=== PATIENT | female | born 1965 | race African-American/Black ===

== ENCOUNTER 2017-10-22 07:14 | Emergency (ER) | payer OTHER ==
[2017-10-22 08:15] VITALS: BP 107/62; PULSE 75; TEMP 97.5; BMI 24.3
--- NOTE | 2017-10-22 09:24 | PDOC ---
History of Present Illness - General Chief Complaint: Pain, Acute Stated Complaint: ABD PAIN Time Seen by Provider: 10/22/17 07:54 History Source: Patient - History of Present Illness Timing/Duration: other Associated Symptoms: reports: headaches. denies: chest pain, cough, fever/ chills, nausea/vomiting, shortness of breath Past History - Past Medical History Allergies/Adverse Reactions: Allergies Allergy/AdvReac Type Severity Reaction Status Date / Time No Known Drug Allergies Allergy Verified 08/24/14 16:55 Home Medications: Ambulatory Orders Calcium Carbonate/Vitamin D3 [Caltrate 600 + D Tablet] 1 each PO BID 10/07/13 FA/Mv,Ca,Iron,Min/Lycopene/Lut [Centrum Tablet] 1 each PO DAILY 10/07/13 Naproxen [Naprosyn -] 500 mg PO BID #14 tablet 08/24/14 Amoxicillin/Potassium Clav [Augmentin 875-125 Tablet] 1 each PO BID #14 tablet 10/22/17 Anemia: No Asthma: No Cancer: No Cardiac Disorders: No CVA: No COPD: No CHF: No Dementia: No Diabetes: No GI Disorders: No Disorders: No HTN: No Hypercholesterolemia: No Liver Disease: No Seizures: No Thyroid Disease: No - Surgical History Abdominal Surgery: No Appendectomy: No Cardiac Surgery: No Cholecystectomy: No Lung Surgery: No Neurologic Surgery: No Orthopedic Surgery: Yes (R FOOT CYSTECTOMY) - Suicide/Smoking/Psychosocial Hx Smoking History: Former smoker Have you smoked in the past 12 months: No If you are a former smoker, when did you quit?: 1985 Information on smoking cessation initiated: No Hx Alcohol Use: No Drug/Substance Use Hx: No Substance Use Type: None Hx Substance Use Treatment: No Review of Systems - Review of Systems Constitutional: No: Chills, Fever HEENTM: Yes: Nose Congestion Respiratory: No: Cough, Shortness of Breath Cardiac (ROS): No: Chest Pain ABD/GI: No: Constipated, Diarrhea, Nausea, Rectal Bleeding, Vomiting *Physical Exam - Vital Signs Last Vital Signs Temp Pulse Resp BP Pulse Ox 97.5 F L 75 20 107/62 100 10/22/17 08:12 10/22/17 08:12 10/22/17 08:12 10/22/17 08:12 10/22/17 08:12 - Physical Exam General Appearance: Yes: Appropriately Dressed. No: Apparent Distress HEENT: positive: Normal ENT Inspection, Normal Voice, Sinus Tenderness (mild to maxillary sinus b/l). negative: Scleral Icterus (R), Scleral Icterus (L) Neck: positive: Supple. negative: Lymphadenopathy (R), Lymphadenopathy (L) Respiratory/Chest: positive: Lungs Clear, Normal Breath Sounds. negative: Respiratory Distress Cardiovascular: positive: Regular Rate, S1, S2 Gastrointestinal/Abdominal: positive: Soft. negative: Tender, Pulsatile Mass Extremity: positive: Normal Inspection Integumentary: positive: Dry, Warm Neurologic: positive: Fully Oriented, Alert, Normal Mood/Affect ED Treatment Course - LABORATORY CBC & Chemistry Diagram: 10/22/17 09:09 10/22/17 09:09 - RADIOLOGY Radiology Studies Ordered: Category Date Time Status CHEST PA & LAT [RAD] Stat Radiology 10/22/17 08:52 Ordered Medical Decision Making - Medical Decision Making 10/22/17 09:17 51-year-old female, denies any significant past medical history here with upper abdominal pain. Patient states for the past 3 days has had sudden onset severe cramping pain to upper abdomen intermittently that lasts seconds to minutes and resolve spontaneously. Sxs occurs whether at rest or on exertion. No exacerbating or alleviating factors. No CP, SOB, diaphoresis, n/v, palpitations , edema. Denies change in BM, dysuria, f/c. No history of similar pain. No cardiac history. No recent cardiac workup. No obvious risk factors for DVT, PE. Patient also complaining of 2 weeks of nasal congestion with green rhinorrhea and pain over maxillary sinuses bilaterally with headache. No fever or chills See exam Upper abd pain x 3 days Unclear etiology at this time R/o ACS though not great story vs GI, i.e gastritis, etc Currently pain free -ekg -cxr -labs -reassess Sinusitis -possibly viral but given duration, may consider abx if discharged 10/22/17 10:22 EKG, chest x-ray and labs unremarkable. Upon reevaluation, patient remains asymptomatic. Now reports to me that she has had similar symptoms in the past and has had EGD and colonoscopy which were unremarkable. We'll DC at this time to continue follow-up with PMD and GI *DC/Admit/Observation/Transfer Diagnosis at time of Disposition: Upper abdominal pain Sinusitis Qualifiers: Sinusitis location: unspecified location Recurrence: not specified as recurrent - Discharge Dispostion Disposition: HOME Condition at time of disposition: Good - Prescriptions Prescriptions: Amoxicillin/Potassium Clav [Augmentin 875-125 Tablet] 1 each PO BID #14 tablet - Referrals Referrals: Wilian Nieto MD [Primary Care Provider] - - Patient Instructions Additional Instructions: The cause of your pain is unclear at this time, but your EKG, chest x-ray and labs were all normal. You will need further evaluation with your PMD and GI. Take antibiotics as prescribed for sinusitis - Post Discharge Activity Forms/Work/School Notes: Back to Work
[2017-10-22 09:29] LABS: BASO % 0.6 % (0-2.0); EOS % 1.2 % (0-4.5); HEMATOCRIT 39.2 % (32.4-45.2); HEMOGLOBIN 12.9 GM/dL (10.7-15.3); LYMPH % 32.7 % (8-40); MCH 28.6 pg (25.7-33.7); MCHC 32.9 g/dl (32.0-36.0); MEAN CELL VOLUME 86.9 fl (80-96); MEAN PLT VOLUME 8.9 fl (7.5-11.1); MONO % 8.5 % (3.8-10.2); PLATELET COUNT 208 K/MM3 (134-434); RBC 4.51 M/mm3 (3.60-5.2); RDW 14.1 % (11.6-15.6)
[2017-10-22 09:56] LABS: ALBUMIN 3.8 g/dl (3.4-5.0); ANION GAP 4 (8-16); BILIRUBIN,TOTAL 0.4 mg/dL (0.2-1.0); BLOOD UREA NITROGEN 8 mg/dL (7-18); CALCIUM 9.3 mg/dL (8.5-10.1); CHLORIDE 106 mmol/L (98-107); CO2 31 mmol/L (21-32); CREATININE 0.8 mg/dL (0.55-1.02); GLUCOSE,RANDOM 89 mg/dL (74-106); LIPASE 44 U/L (73-393); POTASSIUM 4.6 mmol/L (3.5-5.1); SGOT/AST 27 U/L (15-37); SGPT/ALT 26 U/L (12-78); SODIUM 141 mmol/L (136-145); TOT PROT 7.7 g/dl (6.4-8.2)
[2017-10-22 10:04] LABS: ALK PHOS 89 U/L (45-117)
[2017-10-22 10:12] LABS: URINE APPEARANCE CLEAR; URINE BILIRUBIN NEGATIVE (<2.0 mg/dL); URINE COLOR YELLOW; URINE GLUCOSE (UA) NEGATIVE (NEGATIVE); URINE KETONE NEGATIVE (NEGATIVE); URINE LEUK ESTERASE NEGATIVE (NEGATIVE); URINE NITRITE NEGATIVE (NEGATIVE); URINE PROTEIN NEGATIVE (NEGATIVE); URINE UROBILINOGEN NEGATIVE mg/dL (0.2-1.0)
--- NOTE | 2017-10-22 13:27 | EKG ---
Test Reason : Blood Pressure : / mmHG Vent. Rate : 064 BPM Atrial Rate : 064 BPM P-R Int : 130 ms QRS Dur : 068 ms QT Int : 430 ms P-R-T Axes : 072 066 069 degrees QTc Int : 443 ms NORMAL SINUS RHYTHM LOW VOLTAGE QRS BORDERLINE ECG WHEN COMPARED WITH ECG OF 07-OCT-2013 12:44, NO SIGNIFICANT CHANGE WAS FOUND Confirmed by LINCOLN RODRIGUEZ MD ([id number]) on 10/22/2017 1:27:09 PM Referred By: Confirmed By:LINCOLN RODRIGUEZ MD
== END 2017-10-22 10:43 | disposition home or self-care (01) ==
LOC: JER 07:14
DX: R10.10 Upper abdominal pain, unspecified (principal); Z87.891 Personal history of nicotine dependence
CPT/HCPCS: 36415; 71046-TC-FY; 80053; 81003; 82550; 82553; 83690; 84484; 85025; 93005; 93010; 99282-25